=== PATIENT | male | born 1985 | race African-American/Black ===

== ENCOUNTER 2022-03-21 17:37 | Emergency (ER) | payer OTHER, SELFPAY ==
[2022-03-21] VITALS (20 sets, daily range): BP systolic 133–150; BP diastolic 87–96; PULSE 56–87; RESP 12–21; TEMP 36.8; O2SAT 98–100
--- NOTE | ~2022-03-21 | XR_ITS ---
EXAMINATION: XR chest 2V DATE: 03/21/2022 18:05 INDICATION: Left chest pain. Shortness of breath. TECHNIQUE: Frontal and lateral views of the chest were obtained. COMPARISON: None. FINDINGS: The chest demonstrates clear lungs without pneumonia, pleural effusion, or pneumothorax. Th e heart size is normal. IMPRESSION: 1. No acute cardiopulmonary disease. Reviewed, dictated and finalized at location A.
--- NOTE | 2022-03-21 17:40 | ECG_ITS ---
Measurements Intervals [place] Rate: 86 P: 72 NC: 154 QRS: 61 QRSD: 108 T: 51 QT: 342 QTc: 411 Interpretive Statements SINUS RHYTHM WITH SINUS ARRHYTHMIA POSSIBLE RIGHT ATRIAL ENLARGEMENT POSSIBLE LEFT ATRIAL ENLARGEMENT INCOMPLETE RIGHT BUNDLE BRANCH BLOCK BORDERLINE ECG Electronically Signed On 03-21-2022 19:48:50 CDT by Leo Blanco D.O.
[2022-03-21 18:00] LABS: Basophils Percent Auto 0.5 % (0.2-1.2); Eosinophils Absolute Auto 0.1 K/mm3 (0-0.3); Eosinophils Percent Auto 1.7 % (0-4.4); Hematocrit 42.3 % (42.0-52.0); Hemoglobin 13.9 g/dL (14.0-18.0); Immature Granulocyte Absolute 0.01 K/mm3 (0.00-0.031); Immature Granulocyte Percent A 0.2 % (0-0.5); Lymphocytes Absolute Auto 2.03 K/mm3 (0.9-3.2); Lymphocytes Percent Auto 33.7 % (18.3-44.2); Mean Corpuscular HGB Conc 32.9 g/dl (32-36); Mean Corpuscular Volume 97.2 fl (80-100); Mean Platelet Volume 9.3 fl (7.4-10.4); Monocytes Absolute Auto 0.5 K/mm3 (0.1-0.6); Monocytes Percent Auto 8.5 % (2.6-8.5); Neutrophils Absolute Auto 3.3 K/mm3 (1.3-6.7); Neutrophils Percent Auto 55.4 % (45.5-73.1); Platelet Count Result 282 k/mm3 (150-375); Red Blood Count 4.35 M/mm3 (4.6-6.20); Red Cell Distribution Width 13.5 % (11.5-14.5)
[2022-03-21 18:09] LABS: Alanine Aminotransferase 19 U/L (4-50); Albumin Level 4.8 g/dL (3.5-5.1); Alkaline Phosphatase 49 U/L (38-126); Anion Gap 9 mmol/L (8-16); Aspartate Amino Transferase 32 U/L (17-59); Bilirubin,Total 0.3 mg/dL (0.2-1.3); Blood Urea Nitrogen 17 mg/dL (9-20); Calcium 8.9 mg/dL (8.4-10.2); Carbon Dioxide 26 mmol/L (22-30); Chloride 105 mmol/L (98-107); Estimated CRCL calculation 98 ml/min; Estimated Glomerular Filt Rate > 60; Glucose 90 mg/dL (65-110); Lipase 86 U/L (23-300); Potassium 3.8 mmol/L (3.4-5.0); Sodium 140 mmol/L (137-145)
[2022-03-21 18:15] LABS: INR 1.3; Partial Thromboplastin Time 30.2 SECONDS (22.3-36.8); Prothrombin Time 15.2 Seconds (11.1-14.7)
[2022-03-21 18:21] LABS: Troponin I < 0.012 ng/mL (0.000-0.034)
[2022-03-21] MEDS: ASPIRIN 81 MG CHEWABLE TABLET 324 MG PO (18:47)
--- NOTE | 2022-03-21 18:59 | ED.CHESTPAIN ---
HPI - Chest Pain General Chief Complaint: Chest Pain Stated Complaint: chest pain x 1 day Time Seen by Provider: 03/21/22 18:51 Source: RN notes reviewed History of Present Illness HPI narrative: Patient presents emergency room from home for chest pain. Patient states he has had pain over his left side of his chest for the past 2 days the pain is intermittent in nature described as a pressure states it is improved with rest and he currently has no pain he denies any fevers or chills. He denies any radiation of the pain. He denies any shortness of breath abdominal pain nausea vomiting or any other symptoms denies any previous cardiac history Related Data Allergies Allergy/AdvReac Type Severity Reaction Status Date / Time No Known Allergies Allergy Unverified 02/26/14 14:41 Review of Systems Review of Systems: Gen.: Denies fevers or chills ENT: Denies congestion Respiratory: Denies shortness of breath or cough CV: See HPI GI: Denies abdominal pain nausea, emesis or diarrhea Musculoskeletal: Denies back pain or muscle pain Neuro: Denies numbness, tingling, weakness or focal weakness Skin: Denies rash Except as documented, all other systems reviewed and negative REPLACED BY [facility] Past Medical History Medical History (Updated 03/21/22 @ 19:00 by Oscar Foley DO) Patient denies significant medical history Social History Social History (Updated 03/21/22 @ 19:04 by Oscar Foley DO) Smoking status: Current every day smoker Exam Narrative: APPEARANCE: No acute distress, nontoxic, resting in bed EYES: EOMI HEENT: Normocephalic, atraumatic, OMM RESPIRATORY: No respiratory distress Clear to auscultation bilaterally with no rhonchi wheezing or rales. CARDIOVASCULAR: Regular rate and rhythm without murmurs rubs or gallops. ABDOMINAL: Soft, nontender, nondistended, no rebound or guarding MUSCULOSKELETAl: Moves all extremities. No clubbing, cyanosis or edema. NEURO: Awake and alert. Following commands, speech normal, no focal deficits SKIN:: Warm, dry. No rashes lesions or abrasions PSYCHIATRIC: Normal affect/mood, Course Vital Signs Vital signs: Vital Signs Temperature 98.2 F 03/21/22 18:04 Pulse Rate 87 03/21/22 18:04 Respiratory Rate 18 03/21/22 18:04 Blood Pressure 150/87 H 03/21/22 18:04 Pulse Oximetry 100 03/21/22 18:04 Temperature 98.2 F 03/21/22 18:04 Pulse Rate 87 03/21/22 18:04 Respiratory Rate 18 03/21/22 18:04 Blood Pressure 150/87 H 03/21/22 18:04 Pulse Oximetry 100 03/21/22 18:04 MDM - Chest Pain Lab Data Result diagrams: 03/21/22 17:52 03/21/22 17:52 Labs: Lab Results 03/21/22 03/21/22 03/21/22 Range/Units 17:52 17:52 17:52 WBC 6.0 (4.5-10.0) K/mm3 RBC 4.35 L (4.6-6.20) M/mm3 Hgb 13.9 L (14.0-18.0) g/dL Hct 42.3 (42.0-52.0) % MCV 97.2 (80-100) fl MCH 32.0 (26-34) pg MCHC 32.9 (32-36) g/dl RDW 13.5 (11.5-14.5) % Plt Count 282 (150-375) k/mm3 MPV 9.3 (7.4-10.4) fl Immature Gran % (Auto) 0.2 (0-0.5) % Neut % (Auto) 55.4 (45.5-73.1) % Lymph % (Auto) 33.7 (18.3-44.2) % [place] % (Auto) 8.5 (2.6-8.5) % Eos % (Auto) 1.7 (0-4.4) % Baso % (Auto) 0.5 (0.2-1.2) % Lymph # (Auto) 2.03 (0.9-3.2) K/mm3 [place] # (Auto) 0.5 (0.1-0.6) K/mm3 Eos # (Auto) 0.1 (0-0.3) K/mm3 Baso # (Auto) 0.0 (0.0-0.1) K/mm3 Abs Immat Gran (auto) 0.01 (0.00-0.031) K/mm3 Absolute Neuts (auto) 3.3 (1.3-6.7) K/mm3 Absolute Nucleated RBC 0.0 (0.0-0.012) K/mm3 Nucleated RBC % 0.0 (0.0-0.2) % PT 15.2 H (11.1-14.7) Seconds INR 1.3 APTT 30.2 (22.3-36.8) SECONDS Sodium 140 (137-145) mmol/L Potassium 3.8 (3.4-5.0) mmol/L Chloride 105 (98-107) mmol/L Carbon Dioxide 26 (22-30) mmol/L Anion Gap 9 (8-16) mmol/L BUN 17 (9-20) mg/dL Creatinine 1.00 (0.7-1.3) mg/dL Estim Creat Clear Calc 98 ml/min Estimate
--- NOTE | 2022-03-21 19:00 | PC.NURSE ---
Assumed care of pt. at this time. Report from SATYA Clarke
--- NOTE | 2022-03-21 19:18 | ED.GENADULT ---
HPI - General Adult General Chief complaint: Chest Pain Stated complaint: chest pain x 1 day Time Seen by Provider: 03/21/22 18:51 Source: RN notes reviewed History of Present Illness HPI narrative: Patient is a 36-year-old gentleman who presents the emergency department with chief complaint of chest discomfort. Patient states that for the last several days has been having intermittent discomfort in his chest states that goes for several hours but does not have an exact amount of time but it last. Patient states today around 3 PM he started having discomfort on the left side of his chest denies radiation denies diaphoresis denies shortness of breath with it. Patient states that he is had no trauma reports no fever no cough. 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 Patient denies any prior history of cardiac disease reports that he currently does not have a primary care physician. Related Data Allergies Allergy/AdvReac Type Severity Reaction Status Date / Time No Known Allergies Allergy Unverified 02/26/14 14:41 Review of Systems Review of Systems: A 10 system review of systems was completed on the patient and is negative except for what is stated in the HPI. Nursing and ancillary documentation was reviewed. FORMERLY [facility], [facility]–1983 Past Medical History Medical History Patient denies significant medical history Social History Social History Smoking status: Current every day smoker Comments Patient denies past medical history Family history is significant for hypertension and diabetes Social history the patient smokes cigarettes Exam Narrative: GENERAL: Well-appearing, well-nourished, and in no acute distress. HEAD: Normocephalic, atraumatic. EYES: PERRLA and EOMI. ENT: Nares clear, no rhinorrhea or epistaxis. Mucous membranes moist. NECK: Supple. CHEST: Clear to auscultation. No respiratory distress. HEART: Regular rate and rhythm. No murmur heard. Normal peripheral pulses. ABDOMEN: Soft, nontender, nondistended, normal active bowel sounds. EXTREMITIES: Normal range of motion. No edema. SKIN: Warm, dry, no rash. NEURO: No focal deficits. Alert and oriented x3. PSYCH: Normal mood and affect. Course Course Emergency Course: EKG interpreted by me sinus rhythm rate of 86. Nonspecific interventricular conduction delay. No ST elevation or ST depression. Vital Signs Vital signs: Vital Signs Temperature 36.8 C 03/21/22 18:04 Pulse Rate 87 03/21/22 18:04 Respiratory Rate 18 03/21/22 18:04 Blood Pressure 150/87 H 03/21/22 18:04 Pulse Oximetry 100 03/21/22 18:04 Temperature 36.8 C 03/21/22 18:04 Pulse Rate 72 03/21/22 20:00 Respiratory Rate 14 03/21/22 20:00 Blood Pressure 133/95 H 03/21/22 20:00 Pulse Oximetry 99 03/21/22 20:00 Medical Decision Making Vital Signs Vital Signs: Vital Signs Temperature 36.8 C 03/21/22 18:04 Pulse Rate 87 03/21/22 18:04 Respiratory Rate 18 03/21/22 18:04 Blood Pressure 150/87 H 03/21/22 18:04 Pulse Oximetry 100 03/21/22 18:04 Temperature 36.8 C 03/21/22 18:04 Pulse Rate 72 03/21/22 20:00 Respiratory Rate 14 03/21/22 20:00 Blood Pressure 133/95 H 03/21/22 20:00 Pulse Oximetry 99 03/21/22 20:00 Lab Data Result diagrams: 03/21/22 17:52 03/21/22 17:52 Labs: Lab Results 03/21/22 03/21/22 03/21/22 Range/Units 17:52 17:52 17:52 WBC 6.0 (4.5-10.0) K/mm3 RBC 4.35 L (4.6-6.20) M/mm3 Hgb 13.9 L (14.0-18.0) g/dL Hct 42.3 (42.0-52.0) % MCV 97.2 (80-100) fl MCH 32.0 (26-34) pg MCHC 32.9 (32-36) g/dl RDW 13.5 (11.5-14.5) % Plt Count 282 (150-375) k/mm3 MPV 9.3 (7.4-10.4) fl Immature Gran % (Auto) 0.2 (0-0.5) % Neut % (Auto) 55.4 (45.5-73.1) % Lymph % (Auto) 33.7 (18.3-4
[2022-03-21] MEDS: BELLADONNA ALK/PHENOB ELIX 10 ML, MAG HYDROX/ALUMINUM HYD/SIMETH 30 ML, LIDOCAINE HCL 2... PO (20:02)
[2022-03-21] MEDS: KETOROLAC 30 MG/ML VIAL (*BKC) IV PUSH (20:07)
[2022-03-21 20:19] LABS: D Dimer < 0.27 ug/mL (<0.48)
[2022-03-21 21:17] LABS: Troponin I < 0.012 ng/mL (0.000-0.034)
== END 2022-03-21 21:30 | disposition home or self-care (01) ==
PROVIDERS: Emergency Medicine; Emergency Provider Emergency Medicine
DX: R07.89 Other chest pain (principal); F17.210 Nicotine dependence, cigarettes, uncomplicated; I45.10 Unspecified right bundle-branch block; R94.31 Abnormal electrocardiogram [ECG] [EKG]
CPT/HCPCS: 36415; 71046; 80053; 83690; 84484; 85025; 85380; 85610; 85730; 93005; 96374; 99284; A9270; J1885

== ENCOUNTER 2023-05-22 22:24 | Emergency (ER) | payer OTHER, SELFPAY ==
[2023-05-22 22:25] VITALS: BP 131/82; PULSE 114; RESP 14; TEMP 36.8; O2SAT 96
--- NOTE | 2023-05-22 23:32 | ED.GENADULT ---
HPI - General Adult General Chief complaint: Skin/Abscess/Foreign Body Stated complaint: hemorrhoids Time Seen by Provider: 05/22/23 23:22 Source: patient Mode of arrival: ambulatory Limitations: no limitations History of Present Illness HPI narrative: This is a 38-year-old male who presents to the ED with chief complaint of hemorrhoid pain for the past couple of days. Patient states that he first noticed 2 days ago. States he is still able to have bowel movements. He was told to use Preparation H and stool softener by his PCP. He states this is not helped. Denies any fevers, chills, abdominal pain, bloody stools. Related Data Home Medications Medication Instructions Recorded Confirmed multivit with minerals-folic tablet PO DAILY 05/15/23 05/15/23 acid-lycopene 0.4 mg-600 mcg tablet Allergies Allergy/AdvReac Type Severity Reaction Status Date / Time No Known Allergies Allergy Verified 05/22/23 22:25 [facility] Past Medical History Medical History Patient denies significant medical history Family History Family History (Updated 05/15/23 @ 08:43 by Oma Silva CMA) Other Asthma Diabetes mellitus Hypertension Malignant neoplasm of prostate Social History Social History (Updated 05/15/23 @ 08:42 by Oma Silva CMA) Smoking status: Current every day smoker Second hand tobacco smoke exposure: No Alcohol intake: current Alcohol use details: Every now and then he has a whiskey or a beer. 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 HEAD: Normocephalic, atraumatic. EYES: PERRLA and EOMI. ENT: Nares clear, no rhinorrhea or epistaxis. Mucous membranes moist. Oropharynx without tonsillar hypertrophy exudate or other lesions. NECK: Supple. No adenopathy or masses. CHEST: No respiratory distress. Clear to auscultation. No wheezes rales or rhonchi HEART: Regular rate and rhythm. No murmur heard. Normal peripheral pulses. ABDOMEN: Soft, nontender, nondistended, normal active bowel sounds. : Evidence of prolapse internal hemorrhoids. They are tender to touch. No evidence of thrombosed hemorrhoid. Reducible. No active bleeding. MSK: Normal range of motion. No edema. SKIN: Warm, dry, no rash. NEURO: Alert and oriented x3. No focal deficits. PSYCH: Normal mood and affect. Course Vital Signs Vital signs: Vital Signs Temperature 98.2 F 05/22/23 22:25 Pulse Rate 114 H 05/22/23 22:25 Respiratory Rate 14 05/22/23 22:25 Blood Pressure 131/82 05/22/23 22:25 Pulse Oximetry 96 05/22/23 22:25 Oxygen Delivery Room Air 05/22/23 22:25 Temperature 98.2 F 05/22/23 22:25 Pulse Rate 114 H 05/22/23 22:25 Respiratory Rate 14 05/22/23 22:25 Blood Pressure 131/82 05/22/23 22:25 Pulse Oximetry 96 05/22/23 22:25 Oxygen Delivery Room Air 05/22/23 22:25 Medical Decision Making MDM Narrative Medical decision making narrative: This is a 38-year-old male who presents the ED with chief complaint of hemorrhoid pain x2 days. Vitals show initial tachycardia, likely due to pain. His exam reveals a prolapsed internal hemorrhoid. It is reducible. Consulted attending Dr. Tee
[2023-05-23] MEDS: HYDROcodone/acetaminophen (*CRX) 5-325 MG TABLET 1 TAB PO (00:20)
== END 2023-05-23 00:25 | disposition home or self-care (01) ==
PROVIDERS: Emergency Provider Physician Assistant; PCP Family Medicine
DX: K64.8 Other hemorrhoids (principal)
CPT/HCPCS: 99283; A9270